=== PATIENT | male | born 1995 | race Caucasian/White ===

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

== ENCOUNTER 2017-05-03 17:09 | Emergency (ER) | payer OTHER ==
[2017-05-03 17:14] VITALS: BP 117/73
--- NOTE | 2017-05-03 18:11 | ED ---
Upper Extremity Pain - HPI Summary HPI Summary: [facility] patient presents with right ring finger injury yesterday while playing basketball. Patient reports he jammed this finger on something. He does not report that his finger was dislocated however he does have bruising , swelling, pain and stiffness. Denies numbness, tingling, weakness. He has applied ice and taken ibuprofen. He reports no pain at rest, only with movement. No previous injuries to this finger however he believes he may have jammed another finger on this hand a few years ago - no residual effects. - History of Current Complaint Chief Complaint: EDExtremityUpper Stated Complaint: RING FINGER RT HAND INJURY Time Seen by Provider: 05/03/17 17:42 Hx Obtained From: Patient, Family/Mobile Unit Assistant - borther in law, father - Allergies/Home Medications Allergies/Adverse Reactions: Allergies Allergy/AdvReac Type Severity Reaction Status Date / Time No Known Allergies Allergy Verified 11/29/15 20:27 PMH/Surg Hx/FS Hx/Imm Hx Previously Healthy: Yes Endocrine/Hematology History: Denies: Hx Anticoagulant Therapy, Hx Blood Disorders, Hx Diabetes Cardiovascular History: Denies: Hx Hypertension Respiratory History: Denies: Hx Asthma Musculoskeletal History: Reports: Hx Orthopedic Injury - previously "jammed" finger Denies: Hx Arthritis, Hx of Fracture(s) Sensory History: Denies: Hx Contacts or Glasses, Hx Hearing Aid Opthamlomology History: Denies: Hx Contacts or Glasses Psychiatric History: Reports: Hx Community Mental Health Tx Denies: Hx Eating Disorder, Hx of Violent Episodes Against Others - Surgical History Surgery Procedure, Year, and Place: none Infectious Disease History: No Infectious Disease History: Denies: Traveled Outside the US in Last 30 Days - Family History Known Family History: Positive: Cardiac Disease Negative: Respiratory Disease - Social History Occupation: Student - [employer] Lives: Dormitory/Roommates Alcohol Use: None Hx Substance Use: No Substance Use Type: Reports: None Hx Tobacco Use: No Smoking Status (MU): Never Smoked Tobacco Review of Systems Constitutional: Negative Positive: no symptoms reported Positive: Arthralgia, Myalgia, Decreased ROM, Edema Positive: Bruising Neurological: Negative Psychological: Normal All Other Systems Reviewed And Are Negative: Yes Physical Exam Triage Information Reviewed: Yes Vital Signs On Initial Exam: Initial Vitals Temp Pulse Resp BP Pulse Ox 98.4 F 63 16 117/73 99 05/03/17 17:12 05/03/17 17:12 05/03/17 17:12 05/03/17 17:12 05/03/17 17:12 Vital Signs Reviewed: Yes Appearance: Positive: Well-Appearing, No Pain Distress, Well-Nourished Skin: Positive: Warm, Skin Color Reflects Adequate Perfusion, Dry - Right ring finger with ecchymosis seen both dorsally and over palmar aspect - no skin breakdown, mild edema Head/Face: Positive: Normal Head/Face Inspection Eyes: Positive: EOMI ENT: Positive: Hearing grossly normal Respiratory/Lung Sounds: Positive: Breath Sounds Present Cardiovascular: Positive: Pulses are Symmetrical in both Upper and Lower Extremities - Refill less than 2 seconds, radial pulse +2, brisk Musculoskeletal: Positive: Limited @ - Right ring finger with limited range of motion at the DIP and PIP joints due to stiffness and swelling - MCP is without edema, nontender and with full range of motion Neurological: Positive: Normal, Sensory/Motor Intact, Alert, Oriented to Person Place, Time, CN Intact II-III Psychiatric: Positive: Normal Procedures - Splinting Location: Rt middle finger Splint: foam w/ metal finger splint Pre-Proc Neuro Vasc Exam: normal Post-Proc Neuro Vasc Exam: normal Diagnostics - Vital Signs Vital Signs Temp Pulse Resp BP Pulse Ox 05/03/17 17:12 98.4 F 63 16 117/73 99 - Laboratory Diagnostic Studies Comment: XR report and image reviewed: Nondisplaced volar plate fracture base of the middle phalanx Lab Statement: Any lab studies that have been ordered have been reviewed, and results considered in the medical decision making process. Course/Dx - Diagnoses Provider Diagnoses: Fracture of middle phalanx of right ring finger Discharge - Discharge Plan Condition: Stable Disposition: HOME Patient Education Materials: Finger Fracture (ED) Forms: *School Release Referrals: Jaden Banegas MD [Medical Doctor] - Additional Instructions: Rest, ice, elevate, keep splint in place until seen by orthopedics. Call tomorrow to schedule an appointment. Contact information included below. You may also take ibuprofen alternating with acetaminophen with food as needed for pain. *If you develop numbness, weakness or gross discoloration poor circulation, return to the emergency department
--- NOTE | 2017-05-03 18:39 | RAD ---
INDICATION: Right ring finger injury. TECHNIQUE: 3 views of the right ring finger were obtained. FINDINGS: The finger is flexed at the proximal interphalangeal joint. There is soft tissue swelling which is most prominent at the proximal interphalangeal joint. There is a nondisplaced volar plate fracture at the base of the middle phalanx. Joint spaces appear maintained. IMPRESSION: NONDISPLACED VOLAR PLATE FRACTURE BASE OF THE MIDDLE PHALANX.
== END 2017-05-03 19:34 | disposition home or self-care (01) ==
LOC: ED 17:09
DX: S62.622A Displaced fracture of middle phalanx of right middle finger, initial encounter for closed fracture (principal); W23.0XXA Caught, crushed, jammed, or pinched between moving objects, initial encounter; Y93.67 Activity, basketball; Y92.9 Unspecified place or not applicable
CPT/HCPCS: 73140; 99282